=== PATIENT | female | born 1985 | race Caucasian/White ===

== ENCOUNTER 2017-09-21 14:16 | Inpatient (IN) | payer MEDICARE, OTHER ==
[2017-09-21] MEDS ORDERED: METHYLERGONOVINE MALEATE 0.2 MG/ML SOL IM PRN (15:05)
[2017-09-21] MEDS ORDERED: LACTATED RINGERS 1,000 ML IV PRN (15:05)
[2017-09-21] MEDS ORDERED: FENTANYL 100MCG/2ML SOL IV PRN (15:05)
[2017-09-21] MEDS ORDERED: OXYTOCIN 10000 MU/ML SOL IM PRN (15:05)
[2017-09-21] MEDS ORDERED: CARBOPROST 250 MCG/ML SOL IM PRN (15:05)
[2017-09-21] MEDS ORDERED: SODIUM CHLORIDE 0.9% FLUSH 10 ML SOL IV PRN (15:05)
[2017-09-21] MEDS ORDERED: MEPIVACAINE HCL 1% MPF 30 ML SOL INFIL PRN (15:05)
[2017-09-21] MEDS: SODIUM CHLORIDE 0.9% FLUSH 10 ML SOL IV SCH (15:25)
[2017-09-21 15:34] LABS: BASOPHILS % (AUTO) 0 % (0-3); EOSINOPHILS % (AUTO) 0 % (0-9); HEMATOCRIT 36 % (35-47); MEAN CORPUSCULAR HGB CONC 35.4 gm/dl (32.0-36.0); MEAN CORPUSCULAR VOLUME 87 fL (81-99); MONOCYTES % (AUTO) 6.3 % (0-12); NEUTROPHILS % (AUTO) 75.1 % (37-80)
[2017-09-21 16:29] LABS: ABO O; ANTIBODY SCREEN Negative; RH TYPE Positive
[2017-09-21] MEDS ORDERED: TERBUTALINE SULFATE 1 MG/ML SOL SC PRN (16:32)
[2017-09-21] MEDS ORDERED: MISOPROSTOL 100 MCG TAB ONE (16:36)
[2017-09-21] MEDS ORDERED: MISOPROSTOL 100 MCG TAB VAG PRN (16:38)
[2017-09-22] MEDS: SODIUM CHLORIDE 0.9% FLUSH 10 ML SOL IV SCH ×3 (04:17→16:59)
[2017-09-22] MEDS ORDERED: OXYTOCIN 10000 MU/ML 20,000 MU in LACTATED RINGERS 1,000 ML IV SCH (15:30)
[2017-09-22] MEDS ORDERED: LACTATED RINGERS 1,000 ML ONE (16:07)
[2017-09-22] MEDS ORDERED: OXYTOCIN 10000 MU/ML SOL ONE (16:07)
[2017-09-22] MEDS: LACTATED RINGERS 1,000 ML IV SCH ×2 (16:25→19:05)
[2017-09-22] MEDS ORDERED: EPHEDRINE SULFATE 50 MG/ML SOL IV PRN (18:30)
[2017-09-22] MEDS ORDERED: DIPHENHYDRAMINE 50 MG/ML SOL IV PRN (18:30)
[2017-09-22] MEDS ORDERED: NALOXONE HYDROCHLORIDE 0.4 MG/ML SOL IV PRN (18:30)
[2017-09-22] MEDS ORDERED: LIDOCAINE HCL 2% MPF SOL ONE (19:11)
[2017-09-22] MEDS ORDERED: FENTANYL 250 MCG/ 5ML SOL ONE (19:36)
[2017-09-22] MEDS ORDERED: ROPIVACAINE HYDROCHLORIDE 5 MG/ML SOL ONE ×2 (19:36→19:37)
[2017-09-22] MEDS ORDERED: METHYLERGONOVINE MALEATE 0.2 MG TAB PO PRN (21:45)
[2017-09-22] MEDS ORDERED: ONDANSETRON HCL 4 MG/2 ML SOL IV PRN (22:03)
[2017-09-23] MEDS ORDERED: SODIUM CHLORIDE 0.9% 1000ML 1,000 ML IV ONE (00:15)
[2017-09-23] MEDS: SODIUM CHLORIDE 0.9% FLUSH 10 ML SOL IV SCH ×3 (00:20→23:20)
[2017-09-23] MEDS ORDERED: NALBUPHINE HCL 20 MG/ML SOL IV PRN (05:07)
[2017-09-23] MEDS ORDERED: WITCH HAZEL 1 EA PAD TOP PRN (05:23)
[2017-09-23] MEDS ORDERED: BENZOCAINE/MENTHOL 1 SPR TOP PRN (05:23)
[2017-09-23] MEDS ORDERED: FLEET ENEMA PR PRN (05:23)
[2017-09-23] MEDS ORDERED: APAP/HYDROCODONE 325/5 TAB PO PRN (05:23)
[2017-09-23] MEDS ORDERED: BISACODYL 10 MG SUP PR PRN (05:23)
[2017-09-23] MEDS ORDERED: TEMAZEPAM 15MG 15 MG CAP PO PRN (05:23)
[2017-09-23] MEDS: LACTATED RINGERS 1,000 ML IV SCH ×5 (06:21→20:50)
[2017-09-23] MEDS: DOCUSATE SODIUM 100 MG SGL PO SCH ×2 (09:22→21:03)
[2017-09-23] MEDS: IBUPROFEN 600 MG TAB PO PRN (09:22)
[2017-09-23] MEDS: FERROUS SULFATE 325 MG TAB PO SCH ×2 (15:10→21:03)
[2017-09-24] MEDS: IBUPROFEN 600 MG TAB PO PRN ×2 (02:44→19:12)
[2017-09-24] MEDS: LACTATED RINGERS 1,000 ML IV SCH (03:44)
[2017-09-24] MEDS: DOCUSATE SODIUM 100 MG SGL PO SCH ×2 (08:48→20:38)
[2017-09-24] MEDS: FERROUS SULFATE 325 MG TAB PO SCH ×2 (09:39→20:38)
[2017-09-24 11:02] VITALS: RESP 20
[2017-09-24 19:09] VITALS: BP 108/70; PULSE 85; TEMP 97.3; O2SAT 97
== END 2017-09-24 21:10 | disposition home or self-care (01) | DRG 774 ==
LOC: OBSVTOIN 14:16 → OB 14:16
PROVIDERS: ADMIT Family Medicine; ATTEND Family Medicine
PROC: 3E0P7VZ Introduction of Hormone into Female Reproductive, Via Natural or Artificial Opening (ICD-10-PCS; 2017-09-21)
PROC: 10E0XZZ Delivery of Products of Conception, External Approach (ICD-10-PCS; principal; 2017-09-23)
PROC: 0KQM0ZZ Repair Perineum Muscle, Open Approach (ICD-10-PCS; 2017-09-23)
DX: O16.4 Unspecified maternal hypertension, complicating childbirth (principal); O72.1 Other immediate postpartum hemorrhage; O70.1 Second degree perineal laceration during delivery; Z3A.39 39 weeks gestation of pregnancy; Z37.0 Single live birth; R55 Syncope and collapse; O69.82X0 Labor and delivery complicated by other cord entanglement, without compression, not applicable or unspecified
CPT/HCPCS: 36415; 59025; 85018; 85025; 86850; 86900; 86901; J0670; J2210; J2405; J2590; J2795; J3010; J3105; A9270-GY